=== PATIENT | female | born 1995 | race African-American/Black ===

== ENCOUNTER 2021-03-12 13:55 | Outpatient (CLI) | payer BC, SELFPAY ==
--- NOTE | ~2021-03-12 | US_ITS ---
US breast LT limited DATE: 03/12/2021 14:27 INDICATION: Left breast lump TECHNIQUE: Real-time imaging and color flow imaging targeted at area of clinical complaint of left br east lump at 7:00 4 cm from nipple COMPARISON: 04/27/2018 and 11/11/2017 limited left breast ultrasound examinations FINDINGS: A parallel circumscribed hypoechoic solid lesion without internal vascularity or abnormal s hadowing is noted at 7:00 4 cm from the nipple, measuring approximately 3.7 x 9 mm maximal dimension, with similar appearance to previous examinations. This is most likely benign fibroadenoma. IMPRESSION: BI-RADS Category 2: Benign finding Reviewed, dictated and finalized at [facility]. Reviewed, dictated and finalized at [facility].
== END 2021-03-12 13:56 | disposition home or self-care (01) ==
LOC: ANHIMG 14:03
PROVIDERS: PCP Nurse Practitioner Family; Visit Provider Surgery
DX: N63.20 Unspecified lump in the left breast, unspecified quadrant (principal)
CPT/HCPCS: 76642

== ENCOUNTER 2021-09-16 10:32 | Outpatient (CLI) | payer OTHER, SELFPAY ==
--- NOTE | ~2021-09-16 | US_ITS ---
EXAMINATION: US breast LT limited HISTORY: Follow-up for probably benign left breast mass TECHNIQUE: Limited left breast ultrasound was performed. COMPARISON: 03/12/2021, 04/27/2018, 11/11/2017 FINDINGS: There is a stable 9 mm x 4 mm oval, circumscribed, parallel, hypoechoic mass with no mechanical service representative ior features or internal vascularity at the 7:00 location 4 cm from the nipple. IMPRESSION: Stable, benign left breast mass. Clinical follow-up is recommended. BI-RADS Category 2: Benign finding(s). Reviewed, dictated and finalized at [facility].
== END 2021-09-16 10:33 ==
LOC: MICIMG 10:34
PROVIDERS: Visit Provider Nurse Practitioner
DX: N63.20 Unspecified lump in the left breast, unspecified quadrant (principal)
CPT/HCPCS: 76642

== ENCOUNTER 2022-03-02 14:52 | Outpatient (CLI) | payer OTHER, SELFPAY ==
--- NOTE | ~2022-03-02 | US_ITS ---
US breast LT limited DATE: 03/02/2022 15:04 INDICATION: Left breast lump follow-up TECHNIQUE: High-resolution left breast ultrasound imaging targeted to 7:00 4 cm from nipple COMPARISON: Serial images dating back to 04/27/2018 FINDINGS: Stable circumscribed hypoechoic solid lesion at 7:00 4 cm from nipple, measuring 4.3 x 7.8 x 8.3 mm. There is through transmission. This is likely a stable small fibroadenoma. IMPRESSION: BI-RADS Category 2: Benign Recommendation: Routine mammographic screening beginning at age 40 Reviewed, dictated and finalized at [facility]. Reviewed, dictated and finalized at [facility].
== END 2022-03-02 14:53 ==
LOC: MICIMG 14:55
PROVIDERS: PCP Nurse Practitioner Family; Visit Provider Surgery
DX: N63.20 Unspecified lump in the left breast, unspecified quadrant (principal); R92.8 Other abnormal and inconclusive findings on diagnostic imaging of breast
CPT/HCPCS: 76642

== ENCOUNTER 2023-10-12 11:01 | Outpatient (CLI) | payer OTHER, SELFPAY ==
--- NOTE | ~2023-10-12 | US_ITS ---
EXAMINATION: US transvaginal DATE: 10/12/2023 11:33 INDICATION: Pelvic pain Comparison:No prior studies for comparison. TECHNIQUE: Multiple transabdominal and endovaginal sonographic images of the pelvis performed. FINDINGS: The uterus measures 8.1 x 5.1 x 6.3 cm. IUD present in the endometrium. The endometrial com plex measures 6 mm. The right ovary measures 4.1 x 1.5 x 3.4 cm and the left ovary measures 3 x 1.5 x 1.9 cm. There are small follicles in each ovary. Normal doppler signal in both ovaries. There is no free fluid in the pelvis. There are no abnormal masses seen on either side. IMPRESSION: 1. Unremarkable pelvic ultrasound. Reviewed, dictated and finalized at [facility].
--- NOTE | ~2023-10-12 | US_ITS ---
US breast LT limited DATE: 10/12/2023 11:16 INDICATION: Left breast lump TECHNIQUE: Targeted ultrasound at area of left breast lump at 7:00 6 cm from nipple COMPARISON: 03/02/2022, 09/16/2021 Limited left breast ultrasound examinations FINDINGS: Parallel circumscribed hypoechoic lesion measuring approximately 3.2 x 8.5 x 6.3 mm, not si gnificant changed since 03/02/2022. No internal vascularity or posterior shadowing. This is slightly d iminished in size compared to 4 x 9 mm measurement on 09/16/2021. IMPRESSION: BI-RADS category 2: Benign Recommendation: Routine mammographic screening beginning at age 40 Reviewed, dictated and finalized at [facility]. Reviewed, dictated and finalized at [facility].
== END 2023-10-12 11:02 ==
LOC: MICIMG 11:02
PROVIDERS: PCP Nurse Practitioner; Visit Provider Nurse Practitioner
DX: N64.4 Mastodynia (principal); R10.2 Pelvic and perineal pain
CPT/HCPCS: 76642; 76830